=== PATIENT | male | born 1960 | race Caucasian/White ===

== ENCOUNTER 2018-08-24 18:08 | Inpatient (IN) | payer OTHER ==
[2018-08-24] MEDS ORDERED: DILTIAZEM DRIP BOLUS FROM BAG 1 MG SOLN IV ONE (18:42)
--- NOTE | 2018-08-24 18:59 | ED ---
General Adult HPI - General Chief complaint: Arrhythmia/Palpitations Stated complaint: Abnormal EKG Time Seen by Provider: 08/24/18 18:28 Source: patient, RN notes reviewed, old records reviewed Mode of arrival: ambulatory Limitations: no limitations - History of Present Illness Initial comments: 58-year-old male presented for evaluation of palpitations and jaundice. Patient initially went to see his primary care physician for evaluation of jaundice and scleral icterus. Patient was found to be in atrial fibrillation with RVR. He has no history of arrhythmia. Denies palpitations, denies lightheadedness, denies chest pain. No vomiting or diarrhea. Patient states that his yellowing of the sclerae is improved over the past several weeks. This was initially much worse than currently. Patient did see his primary care physician although this was the first visit in over 20 years. He has no documented medical history. He is not currently on any medication. He was previously diagnosed with hypertension but has not been on medication for many years. - Related Data Allergies Allergy/AdvReac Type Severity Reaction Status Date / Time No Known Allergies Allergy Verified 08/24/18 18:51 Review of Systems ROS Statement: Those systems with pertinent positive or pertinent negative responses have been documented in the HPI. ROS Other: All systems not noted in ROS Statement are negative. Past Medical History Past Medical History: No Reported History History of Any Multi-Drug Resistant Organisms: None Reported Past Surgical History: No Surgical Hx Reported Past Psychological History: Anxiety Smoking Status: Never smoker Past Alcohol Use History: None Reported Past Drug Use History: Marijuana General Exam Limitations: no limitations General appearance: alert, in no apparent distress Head exam: Present: atraumatic, normocephalic Eye exam: Present: PERRL, scleral icterus ENT exam: Present: normal exam Neck exam: Present: normal inspection. Absent: tenderness, meningismus Respiratory exam: Present: normal lung sounds bilaterally. Absent: respiratory distress, wheezes Cardiovascular Exam: Present: tachycardia, irregular rhythm GI/Abdominal exam: Present: soft. Absent: distended, tenderness, guarding Extremities exam: Present: pedal edema, other (Bilateral chronic venous stasis). Absent: tenderness Neurological exam: Present: alert, oriented X3, CN II-XII intact. Absent: motor sensory deficit Psychiatric exam: Present: normal affect, normal mood Skin exam: Present: warm, dry, intact, other Course Vital Signs 08/24/18 18:24 Temperature 98.3 F Pulse Rate 88 Respiratory 20 Rate Blood Pressure 157/88 O2 Sat by Pulse 97 Oximetry EKG Findings - EKG Comments: EKG Findings:: EKG: Atrial fibrillation versus atrial flutter with AV block, rapid ventricular response no ST segment elevation. Rate of 150 QRS duration 100, QTC 442 Medical Decision Making - Medical Decision Making 58 -year-old male presenting for evaluation of jaundice and new-onset atrial fibrillation with RVR. Patient is in A. fib with a rate between 1 5170. No chest pain. No abdominal pain. Laboratory studies indicate normal CBC, significant elevation in bilirubin at 10.7. He has a transaminitis with AST 348, ALT 159, elevated alkaline phosphatase. Ultrasound is obtained and results are pending. Troponin is negative. Chest x-ray negative for acute cardiopulmonary disease. Patient is initiated on Cardizem with improvement and rate. Blood pressure remained stable. Patient will be admitted for evaluation of hyperbilirubinemia, new-onset atrial fibrillation with RVR. Cardiology and gastric neurology placed on consult. Case discussed with Dr. Be who will admit. Ultrasound liver pending. - Lab Data Result diagrams: 08/24/18 18:53 08/24/18 18:53 Lab Results 08/24/18 08/24/18 08/24/18 Range/Units 18:53 18:53 18:53 WBC 7.2 (3.8-10.6) k/uL RBC 4.53 (4.30-5.90) m/uL Hgb 15.5 (13.0-17.5) gm/dL Hct 46.6 (39.0-53.0) % MCV 103.0 H (80.0-100.0) fL MCH 34.2 (25.0-35.0) pg MCHC 33.2 (31.0-37.0) g/dL RDW 14.9 (11.5-15.5) % Plt Count 258 (150-450) k/uL Neutrophils % 79 % Lymphocytes % 11 % Monocytes % 6 % Eosinophils % 1 % Basophils % 1 % Neutrophils # 5.7 (1.3-7.7) k/uL Lymphocytes # 0.8 L (1.0-4.8) k/uL Monocytes # 0.5 (0-1.0) k/uL Eosinophils # 0.1 (0-0.7) k/uL Basophils # 0.1 (0-0.2) k/uL Macrocytosis Slight PT 11.6 (9.0-12.0) sec INR 1.1 (<1.2) APTT 22.8 (22.0-30.0) sec Sodium 138 (137-145) mmol/L Potassium 4.8 (3.5-5.1) mmol/L Chloride 104 (98-107) mmol/L Carbon Dioxide 24 (22-30) mmol/L Anion Gap 10 mmol/L BUN 17 (9-20) mg/dL Creatinine 0.88 (0.66-1.25) mg/dL Est GFR (CKD-EPI)AfAm >90 (>60 ml/min/1.73 sqM) Est GFR (CKD-EPI)NonAf >90 (>60 ml/min/1.73 sqM) Glucose 107 H (74-99) mg/dL Calcium 9.0 (8.4-10.2) mg/dL Magnesium 1.8 (1.6-2.3) mg/dL Total Bilirubin 10.7 H (0.2-1.3) mg/dL Conjugated Bilirubin (0.0-0.3) mg/dL Unconjugated Bilirubin (0.0-1.1) mg/dL Delta Bilirubin (0.0-0.2) mg/dL AST 348 H (17-59) U/L ALT 159 H (21-72) U/L Alkaline Phosphatase 350 H (38-126) U/L Troponin I (0.000-0.034) ng/mL Total Protein 8.3 H (6.3-8.2) g/dL Albumin 3.6 (3.5-5.0) g/dL 08/24/18 08/24/18 Range/Units 18:53 19:40 WBC (3.8-10.6) k/uL RBC (4.30-5.90) m/uL Hgb (13.0-17.5) gm/dL Hct (39.0-53.0) % MCV (80.0-100.0) fL MCH (25.0-35.0) pg MCHC (31.0-37.0) g/dL RDW (11.5-15.5) % Plt Count (150-450) k/uL Neutrophils % % Lymphocytes % % Monocytes % % Eosinophils % % Basophils % % Neutrophils # (1.3-7.7) k/uL Lymphocytes # (1.0-4.8) k/uL Monocytes # (0-1.0) k/uL Eosinophils # (0-0.7) k/uL Basophils # (0-0.2) k/uL Macrocytosis PT (9.0-12.0) sec INR (<1.2) APTT (22.0-30.0) sec Sodium (137-145) mmol/L Potassium (3.5-5.1) mmol/L Chloride (98-107) mmol/L Carbon Dioxide (22-30) mmol/L Anion Gap mmol/L BUN (9-20) mg/dL Creatinine (0.66-1.25) mg/dL Est GFR (CKD-EPI)AfAm (>60 ml/min/1.73 sqM) Est GFR (CKD-EPI)NonAf (>60 ml/min/1.73 sqM) Glucose (74-99) mg/dL Calcium (8.4-10.2) mg/dL Magnesium (1.6-2.3) mg/dL Total Bilirubin 10.5 H (0.2-1.3) mg/dL Conjugated Bilirubin 3.2 H (0.0-0.3) mg/dL Unconjugated Bilirubin 2.6 H (0.0-1.1) mg/dL Delta Bilirubin 4.7 H (0.0-0.2) mg/dL AST (17-59) U/L ALT (21-72) U/L Alkaline Phosphatase (38-126) U/L Troponin I <0.012 (0.000-0.034) ng/mL Total Protein (6.3-8.2) g/dL Albumin (3.5-5.0) g/dL Critical Care Time Critical Care Time: Yes Total Critical Care Time: 35 Disposition Clinical Impression: Atrial fibrillation, Atrial fibrillation with RVR, Hyperbilirubinemia Disposition: ADMITTED IP TO THIS [facility] Condition: Serious Is patient prescribed a controlled substance at d/c from ED?: No Referrals: Gt Lopez MD [Primary Care Provider] - 1-2 days Decision to Admit Reason: Admit from EC Decision Date: 08/24/18 Decision Time: 20:16
[2018-08-24 19:08] LABS: Basophils # (A) 0.1 k/uL (0-0.2); Basophils % (A) 1 %; Eosinophils # (A) 0.1 k/uL (0-0.7); Eosinophils % (A) 1 %; HCT 46.6 % (39.0-53.0); HGB 15.5 gm/dL (13.0-17.5); Lymphocytes # (A) 0.8 k/uL (1.0-4.8); Lymphocytes % (A) 11 %; MCH 34.2 pg (25.0-35.0); MCHC 33.2 g/dL (31.0-37.0); Macrocytosis Slight; Mean Platelet Volume 8.4; Monocytes # (A) 0.5 k/uL (0-1.0); Monocytes % (A) 6 %; Neutrophils # (A) 5.7 k/uL (1.3-7.7); Neutrophils % (A) 79 %; Platelet Count 258 k/uL (150-450); RBC 4.53 m/uL (4.30-5.90); RDW 14.9 % (11.5-15.5); WBC 7.2 k/uL (3.8-10.6)
--- NOTE | 2018-08-24 19:09 | XR ---
EXAMINATION TYPE: XR chest 2V DATE OF EXAM: 08/24/2018 COMPARISON: NONE HISTORY: Dysrhythmia TECHNIQUE: Frontal and lateral views of the chest are obtained. FINDINGS: Heart and mediastinum are normal. Lungs are clear. Diaphragm is normal. There are chest le ads. Bony thorax is intact. IMPRESSION: Normal chest.
[2018-08-24 19:13] LABS: ALT 159 U/L (21-72); AST 348 U/L (17-59); Albumin 3.6 g/dL (3.5-5.0); Alkaline Phosphatase 350 U/L (38-126); Anion Gap 10 mmol/L; Blood Urea Nitrogen 17 mg/dL (9-20); Carbon Dioxide 24 mmol/L (22-30); Chloride 104 mmol/L (98-107); Glucose 107 mg/dL (74-99); Magnesium 1.8 mg/dL (1.6-2.3); Potassium 4.8 mmol/L (3.5-5.1); Sodium 138 mmol/L (137-145); Total Bilirubin 10.7 mg/dL (0.2-1.3); Total Protein 8.3 g/dL (6.3-8.2)
[2018-08-24 19:18] LABS: INR 1.1 (<1.2); Partial Thromboplastin Time 22.8 sec (22.0-30.0); Prothrombin Time 11.6 sec (9.0-12.0)
[2018-08-24] MEDS: DILTIAZEM 125 MG in SODIUM CHLORIDE 0.9% 100 ML IV SCH (19:19)
[2018-08-24 19:49] LABS: Bilirubin, Conjugated 3.2 mg/dL (0.0-0.3); Bilirubin, Delta 4.7 mg/dL (0.0-0.2); Bilirubin,Unconjugated 2.6 mg/dL (0.0-1.1); Total Bilirubin 10.5 mg/dL (0.2-1.3)
[2018-08-24] MEDS ORDERED: NALOXONE 0.4 MG/ML 1 ML VIAL IV PRN (19:55)
[2018-08-24] MEDS ORDERED: SODIUM CHLORIDE 0.9% 500 ML 500 ML IV ONE (20:00)
--- NOTE | 2018-08-24 20:28 | US ---
EXAMINATION TYPE: US gallbladder DATE OF EXAM: 08/24/2018 COMPARISON: NONE CLINICAL HISTORY: Pain. Juandice and irregular EKG. EXAM MEASUREMENTS: Liver Length: 18.3 cm Gallbladder Wall: 0.4 cm CBD: 0.7 cm Right Kidney: 11.1 x 6.3 x 4.8 cm Pancreas: Obscured by bowel gas Liver: Heterogenous hepatomegaly. Appears to be multiple lesions seen one measuring 2.7 x 2.8 cm lef t lobe. Limited visualization due to body habitus. Gallbladder: Limited due to body habitus. Evidence for sonographic Dahl's sign: No CBD: Upper limits. Right Kidney: Appears wnl. There is no free fluid seen. IMPRESSION: No gallstones or dilated ducts. Heterogeneous liver suspicious for multiple masses and pr esence of metastatic disease.
--- NOTE | 2018-08-24 22:23 | P.HPIM ---
History of Present Illness H&P Date: 08/24/18 Chief Complaint: Referred from PCP clinic, jaundice, afib The patient is a 58-year-old morbidly obese male with no significant past medical history that was referred here from his PCPs clinic. Apparently the patient has been having increasing yellowing of the skin and eyes progressively worsening over the last 3 weeks, he subsequently presented to primary care physician's clinic under Dr. Gt Lopez and was noted to have elevated blood pressure systolic 180 over 90s and was noted to be in A. fib with RVR. The patient denied any symptoms of abdominal pain, change in appetite, weight loss, change in his bowel habits, he denies diarrhea or constipation or itchiness. The patient denies chest pain shortness of breath or but mentions intermittent lower extremity swelling. In the ER the patient complains workup right upper quadrant ultrasound was done no gallstones or dilated ducts are noted, indicate a heterogenous liver suspicious for multiple metastasis and presence of metastatic disease. EKG was consistent with A. fib with RVR with a rate of 150. The patient's labs are remarkable for elevated total bilirubin and 10.7, AST/ALT of 348/159, alkaline phosphatase 350. Past Medical History Past Medical History: No Reported History History of Any Multi-Drug Resistant Organisms: None Reported Past Surgical History: No Surgical Hx Reported Past Psychological History: Anxiety Smoking Status: Never smoker Past Alcohol Use History: None Reported Past Drug Use History: Marijuana Medications and Allergies Home Medications Medication Instructions Recorded Confirmed Type Xanax(Unknown Dose) 1 tab PO DAILY 08/24/18 08/24/18 History Allergies Allergy/AdvReac Type Severity Reaction Status Date / Time No Known Allergies Allergy Verified 08/24/18 18:51 Physical Exam Vitals: Vital Signs Temp Pulse Resp BP Pulse Ox 08/24/18 21:00 112 H 20 114/80 08/24/18 20:50 146 H 18 114/80 08/24/18 20:40 134 H 12 114/80 08/24/18 20:30 154 H 10 L 146/83 08/24/18 20:20 156 H 10 L 146/83 08/24/18 20:10 131 H 14 146/83 98 08/24/18 20:00 122 H 14 134/82 08/24/18 19:50 134 H 12 08/24/18 19:40 105 H 14 134/82 98 08/24/18 19:30 111 H 18 99 08/24/18 19:20 133 H 21 100 08/24/18 19:10 152 H 13 98 08/24/18 19:00 165 H 12 153/113 08/24/18 18:50 160 H 18 153/113 98 08/24/18 18:46 174 H 22 98 08/24/18 18:24 98.3 F 88 20 157/88 97 Intake and Output 08/24/18 08/24/18 08/24/18 06:59 14:59 22:59 Other: Weight 151.953 kg Constitutional: No acute distress, conversant, pleasant, jaundiced Eyes: mildly icteric sclerae, moist conjunctiva, no lid-lag, PERRLA ENMT: NC/AT,Oropharynx clear, no erythema, exudates Neck:Supple, FROM, no masses, or JVD, No carotid bruits; No thyromegaly Lungs: Clear to auscultation, Clear to percussion, Normal respiratory effort, no accessory muscle use Cardiovascular: irregularly irregular, No murmurs, gallops, or rubs, +1 pedal p eripheral edema Abdominal: Soft Nontender, nom distended, no guarding, no rebound or rigidity, Normoactive bowel sounds No hepatomegaly, No splenomegaly, No palpable mass No abdominal wall hernia noted Skin: Normal temperature, tone, texture, turgor, No induration No subcutaneous nodules, No rash, lesions, No ulcers Extremities:No digital cyanosis No clubbing, Pedal pulses intact and symmet rical Radial pulses intact and symmetrical Normal gait and station, No calf tenderness Psychiatric: Alert and oriented to person, place and time, Appropriate affect Intact judgement Neuro: Muscles Strength 5/5 in all 4 extremities, Sensation to light touch grossly present throughout, Cranial nerves II-XII grossly intact. No focal sensory deficits Results CBC & Chem 7: 08/24/18 18:53 08/24/18 18:53 Labs: Abnormal Lab Results - Last 24 Hours (Table) 08/24/18 08/24/18 08/24/18 Range/Units 18:53 18:53 19:40 MCV 103.0 H (80.0-100.0) fL Lymphocytes # 0.8 L (1.0-4.8) k/uL Glucose 107 H (74-99) mg/dL Total Bilirubin 10.7 H 10.5 H (0.2-1.3) mg/dL Conjugated Bilirubin 3.2 H (0.0-0.3) mg/dL Unconjugated Bilirubin 2.6 H (0.0-1.1) mg/dL Delta Bilirubin 4.7 H (0.0-0.2) mg/dL AST 348 H (17-59) U/L ALT 159 H (21-72) U/L Alkaline Phosphatase 350 H (38-126) U/L Total Protein 8.3 H (6.3-8.2) g/dL Assessment and Plan (1) Hyperbilirubinemia Current Visit: Yes Status: Acute Code(s): E80.6 - OTHER DISORDERS OF BILIRUBIN METABOLISM SNOMED Code(s): 90277529 (2) Transaminitis Current Visit: Yes Status: Acute Code(s): R74.0 - NONSPEC ELEV OF LEVELS OF TRANSAMNS & LACTIC ACID DEHYDRGNSE SNOMED Code(s): 180119963 (3) Atrial fibrillation with RVR Current Visit: Yes Status: Acute Code(s): I48.91 - UNSPECIFIED ATRIAL FIBRILLATION SNOMED Code(s): 848533607309249 (4) Jaundice Current Visit: Yes Status: Acute Code(s): R17 - UNSPECIFIED JAUNDICE SNOM ED Code(s): 05344164 (5) Elevated blood-pressure reading without diagnosis of hypertension Current Visit: Yes Status: Acute Code(s): R03.0 - ELEVATED BLOOD-PRESSURE READING, W/O DIAGNOSIS OF HTN SNOMED Code(s): 329640021 Plan: The patient is admitted anticipated greater than 2 midnight stay with hyperbilirubinemia, transaminitis and ultrasound suggestive and suspicious for metastatic disease. We'll order conjugated and unconjugated bilirubin, check hepatitis panel, and order a CT of the chest abdomen and pelvis due to concern for underlying malignancy. GI will be consult and for further recommendations. The patient is also started on diltiazem drip due to A. fib with RVR, 2-D echocardiogram ordered, pending cardiology consultation. We'll place patient on SCDs and heparin for DVT prophylaxis, follow-up consultants recommendations CODE STATUS: Full code Discussed plan of care with: Patient and his Lani Anticipated discharge : 2-3 days Time with Patient: Greater than 30
[2018-08-24] MEDS ORDERED: IOPAMIDOL-300 CONTRAST 30 ML VIAL (ORAL USE) PO PRN (22:30)
[2018-08-24] MEDS: SODIUM CHLORIDE 0.9% 1,000 ML IV SCH (22:38)
[2018-08-25 01:52] VITALS: BMI 48.0
--- NOTE | 2018-08-25 03:00 | CT ---
EXAM: CT Chest Without And With Intravenous Contrast CLINICAL HISTORY: Reason: jaundice/hyperbilirubinemia/ concern for malignancy TECHNIQUE: Axial computed tomography images of the chest without and with intravenous contrast. CTDI is 78.1 mGy and DLP is 4788.9 mGy-cm. This CT exam was performed using one or more of the following dose reduction techniques: automated exposure control, adjustment of the mA and/or kV according to patient size, and/or use of iterative reconstruction technique. COMPARISON: None available FINDINGS: Lungs: No evidence of acute parenchymal disease or consolidation. No pulmonary masses. Mild thickening/scarring along right minor fissure. Pleural space: No evidence of pleural effusion or pneumothorax. Heart: Mild cardiomegaly. No significant pericardial effusion. Bones/joints: Lower cervical and thoracic spine degenerative changes. No acute bony abnormalities identified. Vasculature: Mild aneurysmal dilatation of ascending thoracic aorta measuring 4.1 cm in maximum AP diameter. No evidence of aortic dissection. Lymph nodes: No pathologically enlarged mediastinal or hilar lymphadenopathy. IMPRESSION: Mild cardiomegaly. Mild aneurysmal dilatation of ascending thoracic aorta measuring 4.1 cm in maximum AP diameter. No evidence of pulmonary metastatic disease or lymphadenopathy. EXAM: CT Abdomen and Pelvis Without And With Intravenous Contrast CLINICAL HISTORY: Reason: jaundice/hyperbilirubinemia/ concern for malignancy TECHNIQUE: Axial computed tomography images of the abdomen and pelvis without contrast material in one or both body regions followed by contrast material and further imaging in one or both body regions. CTDI is 78.1 mGy and DLP is 4788.9 mGy-cm. This CT exam was performed using one or more of the following dose reduction techniques: automated exposure control, adjustment of the mA and/or kV according to patient size, and/or use of iterative reconstruction technique. COMPARISON: Right upper quadrant ultrasound 08/24/2018 FINDINGS: Artifacts: CT Respiratory motion artifact. ABDOMEN: Liver: Hepatic morphology suggestive of cirrhosis with multilobulated appearance. Heterogeneous hepatic density with multiple ill-defined low- density lesions throughout both lobes of liver which are of indeterminate etiology. Largest of which in the left lobe of liver measures 4.4 cm. Gallbladder and bile ducts: Cholelithiasis with small calcified gallstones within the gallbladder. No evidence of biliary dilatation. Pancreas: Pancreas is unremarkable. Spleen: Moderate splenomegaly. Adrenals: No adrenal masses. Kidneys and ureters: Bilateral symmetric renal enhancement. No evidence of renal calculi or hydronephrosis. Stomach and bowel: No evidence of bowel obstruction or pneumoperitoneum. PELVIS: Appendix: No findings to suggest acute appendicitis. Bladder: Urinary bladder is unremarkable. Reproductive: Unremarkable as visualized. ABDOMEN and PELVIS: Intraperitoneal space: No abdominal-pelvic ascites. Bones/joints: Multilevel degenerative changes throughout the lumbar spine. No acute bony abnormalities identified. Soft tissues: Mild generalized edematous changes/anasarca. Vasculature: No abdominal aortic aneurysm. Findings suggesting portal venous hypertension with dilated portal and splenic veins, varices and venous collaterals. Findings suggesting splenorenal shunt. Lymph nodes: No evidence of lymphadenopathy. IMPRESSION: Hepatic morphology suggestive of cirrhosis. Multiple ill-defined hepatic low-density lesions throughout the liver which are of indeterminate etiology and could be related to cirrhosis and hepatocellular disease, but cannot exclude possibility of hepatic malignancy or metastatic disease. Pre-and postcontrast MRI may be considered for further evaluation. Moderate splenomegaly with evidence of portal venous hypertension. Mild generalized edematous changes/anasarca. No abdominal-pelvic ascites. Cholelithiasis with small calcified gallstones. No evidence of biliary dilatation.
--- NOTE | 2018-08-25 08:52 | P.CRDCN ---
History of Present Illness Consult date: 08/25/18 Chief complaint: Change in the color of the skin History of present illness: This is a pleasant 58-year-old gentleman with a past medical history significant for hypertension was taking medication for it in the past but he stopped taking the medication long time ago because of side effects as well as overweight was referred to the hospital by his primary care physician after he noticed change in the color of the eyes and finding consistent with jaundice. For the last several weeks, the patient has been noticing a change in the color of the eyes and being yellowish. Beside that he did not have any other symptoms like abdominal pain, nausea, vomiting, chest pain, chest discomfort, shortness of breath, or edema in the lower extremities. He did not is ago that the color of the urine has been darker. No change in the weight over the last several months. Because of that the patient was referred to the emergency room in the ER the michael gregorio was found to be in atrial fibrillation with RVR and subsequently he was started on Cardizem and drip. No history of atrial fibrillation in the past. The patient did not have any symptoms of heart racing or fluttering or dizziness or lightheadedness or syncope. The liver function test came in to be severe lead abnormal with elevated bilirubin, AST, LT, and alkaline phosphatase. Beside that he underwent an ultrasound of the abdomen which revealed abnormal finding in the liver and subsequently he underwent computed tomography scan of the abdomen and pelvis which revealed finding consistent with possible liver cirrhosis with differential diagnosis of metastasis to the liver. Currently the patient is in process to be seen by the gastroenterology service. Cardiac-baldwin he is on Cardizem IV. I am going to add metoprolol to the current medical regimen. I would hold on anticoagulation at this point. The TSH was checked and came in to be within normal limits. We'll get an echocardiogram was Doppler. Past Medical History Past Medical History: No Reported History Additional Past Medical History / Comment(s): states 15 years ago had HTN, quit taking medications. hasnt seen doctor in 20 yrs. History of Any Multi-Drug Resistant Organisms: None Reported Past Surgical History: No Surgical Hx Reported Past Psychological History: Anxiety Smoking Status: Never smoker Past Alcohol Use History: None Reported Past Drug Use History: Marijuana Medications and Allergies Home Medications Medication Instructions Recorded Confirmed Type Xanax(Unknown Dose) 1 tab PO DAILY 08/24/18 08/24/18 History Allergies Allergy/AdvReac Type Severity Reaction Status Date / Time No Known Allergies Allergy Verified 08/24/18 18:51 Physical Exam Vitals: Vital Signs Temp Pulse Pulse Resp BP BP Pulse Ox 08/25/18 08:20 97.8 F 125 H 16 143/89 96 08/25/18 07:39 97 08/25/18 04:00 98 F 90 18 137/81 98 08/25/18 01:01 113 H 19 135/89 08/25/18 00:30 106 H 17 159/110 08/25/18 00:00 107 H 17 08/24/18 23:30 106 H 18 137/79 08/24/18 22:30 111 H 18 151/97 08/24/18 22:21 109 H 19 151/97 100 08/24/18 22:00 126 H 19 08/24/18 21:30 108 H 19 159/72 08/24/18 21:22 98 F 110 H 18 147/95 97 08/24/18 21:00 112 H 20 114/80 08/24/18 20:50 146 H 18 114/80 08/24/18 20:40 134 H 12 114/80 08/24/18 20:30 154 H 10 L 146/83 08/24/18 20:20 156 H 10 L 146/83 08/24/18 20:10 131 H 14 146/83 98 08/24/18 20:00 122 H 14 134/82 08/24/18 19:50 134 H 12 08/24/18 19:40 105 H 14 134/82 98 08/24/18 19:30 111 H 18 99 08/24/18 19:20 133 H 21 100 08/24/18 19:10 152 H 13 98 08/24/18 19:00 165 H 12 153/113 08/24/18 18:50 160 H 18 153/113 98 08/24/18 18:46 174 H 22 98 08/24/18 18:24 98.3 F 88 20 157/88 97 Intake and Output 08/24/18 08/25/18 08/25/18 22:59 06:59 14:59 Intake Total 27.167 Balance 27.167 Intake: Intake, IV Titration 27.167 Amount Diltiazem 125 mg In 27.167 Sodium Chloride 0.9% 100 ml @ 5 MG/HR 5 mls/hr IV .Q24H [facility] Rx#:[id number] Other: Voiding Method Toilet Toilet # Voids 1 Weight 151.953 kg 152.6 kg - Constitutional General appearance: no acute distress - Respiratory Respiratory: bilateral: CTA - Cardiovascular Rhythm: irregularly irregular Heart sounds: normal: S1, S2 Results 08/24/18 18:53 08/24/18 18:53 Cardiac Enzymes 08/24/18 08/24/18 Range/Units 18:53 18:53 AST 348 H (17-59) U/L Troponin I <0.012 (0.000-0.034) ng/mL Coagulation 08/24/18 Range/Units 18:53 PT 11.6 (9.0-12.0) sec APTT 22.8 (22.0-30.0) sec CBC 08/24/18 Range/Units 18:53 WBC 7.2 (3.8-10.6) k/uL RBC 4.53 (4.30-5.90) m/uL Hgb 15.5 (13.0-17.5) gm/dL Hct 46.6 (39.0-53.0) % Plt Count 258 (150-450) k/uL Comprehensive Metabolic Panel 08/24/18 08/24/18 Range/Units 18:53 19:40 Sodium 138 (137-145) mmol/L Potassium 4.8 (3.5-5.1) mmol/L Chloride 104 (98-107) mmol/L Carbon Dioxide 24 (22-30) mmol/L BUN 17 (9-20) mg/dL Creatinine 0.88 (0.66-1.25) mg/dL Glucose 107 H (74-99) mg/dL Calcium 9.0 (8.4-10.2) mg/dL Unconjugated Bilirubin 2.6 H (0.0-1.1) mg/dL AST 348 H (17-59) U/L ALT 159 H (21-72) U/L Alkaline Phosphatase 350 H (38-126) U/L Total Protein 8.3 H (6.3-8.2) g/dL Albumin 3.6 (3.5-5.0) g/dL Current Medications Generic Name Dose Route Start Last Admin Trade Name Freq PRN Reason Stop Dose Admin Diltiazem HCl 125 mg/ Sodium 125 mls @ 5 mls/hr 08/24/18 19:00 08/25/18 00:23 Chloride IV 15 mg/hr .Q24H [facility] 15 mls/hr Infusion 5 MG/HR Sodium Chloride 1,000 mls @ 75 mls/hr 08/24/18 20:00 08/24/18 22:38 Saline 0.9% IV 75 mls/hr .[id number] [facility] Administration Metoprolol Tartrate 12.5 mg 08/25/18 09:00 Lopressor PO BID [facility] Naloxone HCl 0.2 mg 08/24/18 19:55 Narcan IV Q2M PRN Opioid Reversal Intake and Output 08/24/18 08/25/18 08/25/18 22:59 06:59 14:59 Intake Total 27.167 Balance 27.167 Intake: Intake, IV Titration 27.167 Amount Diltiazem 125 mg In 27.167 Sodium Chloride 0.9% 100 ml @ 5 MG/HR 5 mls/hr IV .Q24H [facility] Rx#:[id number] Other: Voiding Method Toilet Toilet # Voids 1 Weight 151.953 kg 152.6 kg 08/24/18 18:53 08/24/18 18:53 Assessment and Plan Assessment: Assessment #1 atrial fibrillation with RVR. This is a new diagnosis the patient #2 abnormal liver function test and evidence with jaundice. The etiology is unknown #3 liver cirrhosis versus metastasis to the liver #4 hypertension #5 obesity Plan #1 continue the Cardizem drip and try to titrate down the dose #2 add metoprolol to the current medical regimen #3 obtain an echocardiogram was Doppler #4 the TSH was checked and came in to be unremarkable #5 follow-up with the patient Thank you for allowing us participate in the care of the patient
--- NOTE | 2018-08-25 10:49 | ECHOF ---
Referral Reason:afib MEASUREMENTS -------- HEIGHT: 180.3 cm WEIGHT: 152.4 kg BP: RVIDd: 2.7 cm (< 3.3) IVSd: 1.4 cm (0.6 - 1.1) LVIDd: 4.1 cm (3.9 - 5.3) LVPWd: 1.6 cm (0.6 - 1.1) IVSs: 2.2 cm LVIDs: 2.3 cm LVPWs: 2.1 cm LAESV Index (A-L): 29.74 ml/m Ao Diam: 2.9 cm (2.0 - 3.7) AV Cusp: 2.1 cm (1.5 - 2.6) LA Diam: 3.3 cm (2.7 - 3.8) MV EXCURSION: 16.312 mm (> 18.000) MV EF SLOPE: 191 mm/s (70 - 150) EPSS: 0.6 cm RAP: 15.00 mmHg RVSP: 26.73 mmHg FINDINGS -------- Atrial fibrillation. This was a technically good study. The left ventricular size is normal. There is moderate concentric left ventricular hypertrophy. O verall left ventricular systolic function is normal with, an EF between 55 - 60 %. The right ventricle is normal in size. LA is midly dilated 29-33ml/m2. The right atrial size is normal. Interatrial and interventricular septum intact. The aortic valve is trileaflet and appears structurally normal. Mild mitral annular calcification present. Mild mitral regurgitation is present. Mild tricuspid regurgitation present. The right ventricular systolic pressure, as measured by Doppl er, is 26.73mmHg. There is no pulmonic regurgitation present. The aortic root size is normal. The inferior vena cava is mildly dilated. There is no pericardial effusion. CONCLUSIONS -------- 1. Atrial fibrillation. 2. This was a technically good study. 3. The left ventricular size is normal. 4. There is moderate concentric left ventricular hypertrophy. 5. Overall left ventricular systolic function is normal with, an EF between 55 - 60 %. 6. The right ventricle is normal in size. 7. LA is midly dilated 29-33ml/m2. 8. The right atrial size is normal. 9. Interatrial and interventricular septum intact. 10. The aortic valve is trileaflet and appears structurally normal. 11. Mild mitral annular calcification present. 12. Mild mitral regurgitation is present. 13. Mild tricuspid regurgitation present. 14. The right ventricular systolic pressure, as measured by Doppler, is 26.73mmHg. 15. There is no pulmonic regurgitation present. 16. The aortic root size is normal. 17. The inferior vena cava is mildly dilated. 18. There is no pericardial effusion. PRODUCT DEVELOPMENT TECHNICIAN: Tawana Osullivan RDCS
[2018-08-25 11:20] LABS: Hepatitis A Antibody IgM Non-Reactive (Non-Reactive); Hepatitis B Core IgM Non-Reactive (Non-Reactive)
--- NOTE | 2018-08-25 12:10 | P.CONS ---
History of Present Illness - Reason for Consult Consult date: 08/25/18 Jaundice and elevated liver enzymes Requesting physician: Giovany Be - Chief Complaint Jaundice - History of Present Illness 58-year-old male admitted with new onset of painless jaundice x 2 weeks darker colored urine and heart palpitations found to be in A. fib with RVR. White count 7.2. Hemoglobin 15.5. MCV 103. INR 1.1. Total bilirubin 10.7. Conjugated 3.2. Unconjugated 2.6. AST 340. ALT 159. AP 350. Albumin 3.6. Hepatitis panel pending. No history of known liver disease or hepatitis. No history of ETOH or abuse. Denies fever, chills, or acholic stools. No new medications. No recent travels. No history of EGD or colonoscopy. Ultrasound no gallstones or dilated ducts. Heterogeneous liver suspicious for multiple masses and presence of metastatic disease. CT chest abdomen and pelvis findings suggesting portal venous hypertension dilated portal and splenic veins varices and venous collaterals. Findings suggested of splenorenal shunt. Hepatic morphology suggestive of cirrhosis multiple ill-defined hepatic low-density lesions throughout the liver which are indeterminate could related cirrhosis and hepatocellular disease but Malignancy or metastatic disease could not be excluded. Moderate-sized organomegaly with evidence of portal venous hypertension. Generalized anasarca no ascites. Cholelithiasis small calcified gallstones no evidence of biliary dilatation. Review of Systems RConstitutional: Denies fever, chills, sweats, weight gain, or loss. HEENT: Negative for migraines, blurred vision or loss, earaches, drainage, tinnitus, oral mucosal lesions, dysphagia, or odynophagia. Cardiac: Negative for chest pain, arrhythmias, or palpitation. Respiratory: Negative for shortness of breath, hemoptysis, cough, or sputum production. Gastrointestinal: See HPI for pertinent findings. Genitourinary: Negative for hematuria, urgency, frequency, polyuria, dysuria, or penile discharge. Musculoskeletal: Negative for muscle aches, swelling, arthritis, and arthralgias. Neurologic: Negative for stroke or TIA. Endocrine: Negative for thyroid problems. Skin: Negative for rash or itching. Psychiatric: Negative history for depression and anxietyale Past Medical History Past Medical History: No Reported History Additional Past Medical History / Comment(s): states 15 years ago had HTN, quit taking medications. hasnt seen doctor in 20 yrs. History of Any Multi-Drug Resistant Organisms: None Reported Past Surgical History: No Surgical Hx Reported Past Psychological History: Anxiety Smoking Status: Never smoker Past Alcohol Use History: None Reported Past Drug Use History: Marijuana Medications and Allergies Home Medications Medication Instructions Recorded Confirmed Type Xanax(Unknown Dose) 1 tab PO DAILY 08/24/18 08/24/18 History Allergies Allergy/AdvReac Type Severity Reaction Status Date / Time No Known Allergies Allergy Verified 08/24/18 18:51 Physical Exam Vitals: Vital Signs Temp Pulse Pulse Resp BP BP Pulse Ox 08/25/18 08:20 97.8 F 125 H 16 143/89 96 08/25/18 07:39 97 08/25/18 04:00 98 F 90 18 137/81 98 08/25/18 01:01 113 H 19 135/89 08/25/18 00:30 106 H 17 159/110 08/25/18 00:00 107 H 17 08/24/18 23:30 106 H 18 137/79 08/24/18 22:30 111 H 18 151/97 08/24/18 22:21 109 H 19 151/97 100 08/24/18 22:00 126 H 19 08/24/18 21:30 108 H 19 159/72 08/24/18 21:22 98 F 110 H 18 147/95 97 08/24/18 21:00 112 H 20 114/80 08/24/18 20:50 146 H 18 114/80 08/24/18 20:40 134 H 12 114/80 08/24/18 20:30 154 H 10 L 146/83 08/24/18 20:20 156 H 10 L 146/83 08/24/18 20:10 131 H 14 146/83 98 08/24/18 20:00 122 H 14 134/82 08/24/18 19:50 134 H 12 08/24/18 19:40 105 H 14 134/82 98 08/24/18 19:30 111 H 18 99 08/24/18 19:20 133 H 21 100 08/24/18 19:10 152 H 13 98 08/24/18 19:00 165 H 12 153/113 08/24/18 18:50 160 H 18 153/113 98 08/24/18 18:46 174 H 22 98 08/24/18 18:24 98.3 F 88 20 157/88 97 Intake and Output 08/24/18 08/25/18 08/25/18 22:59 06:59 14:59 Intake Total 27.167 Balance 27.167 Intake: Intake, IV Titration 27.167 Amount Diltiazem 125 mg In 27.167 Sodium Chloride 0.9% 100 ml @ 5 MG/HR 5 mls/hr IV .Q24H [facility] Rx#:[id number] Other: Voiding Method Toilet Toilet # Voids 1 Weight 151.953 kg 152.6 kg General appearance: The patient is alert, oriented, in no acute distress. Jaundice. HET: Head is normocephalic and atraumatic. Pupils are equal and reactive. Oropharynx is clear without lesions. Sclera icterus. Neck: Supple without lymphadenopathy. Trachea midline. Heart: S1 S2. Regular rate and rhythm. Lungs: No crackles or wheezes are heard. Abdomen: Soft, nontender, nondistended with bowel sounds. No peritoneal signs. No palpable organomegaly or masses. Extremities: Normal skin color and turgor. No cyanosis, rash, ulceration, clubbing, or edema. Radial and pedal pulses are 2/4 bilaterally. Neurological: No focal deficits. Strength and sensation are grossly intact. Results CBC & Chem 7: 08/24/18 18:53 08/24/18 18:53 Labs: Abnormal Lab Results - Last 24 Hours (Table) 08/24/18 08/24/18 08/24/18 Range/Units 18:53 18:53 19:40 MCV 103.0 H (80.0-100.0) fL Lymphocytes # 0.8 L (1.0-4.8) k/uL Glucose 107 H (74-99) mg/dL Total Bilirubin 10.7 H 10.5 H (0.2-1.3) mg/dL Conjugated Bilirubin 3.2 H (0.0-0.3) mg/dL Unconjugated Bilirubin 2.6 H (0.0-1.1) mg/dL Delta Bilirubin 4.7 H (0.0-0.2) mg/dL AST 348 H (17-59) U/L ALT 159 H (21-72) U/L Alkaline Phosphatase 350 H (38-126) U/L Total Protein 8.3 H (6.3-8.2) g/dL CT scan - abdomen: report reviewed (Dr. Dawn) US - abdomen: report reviewed (Dr. Dawn) Assessment and Plan (1) Jaundice Narrative/Plan: 58 y/o male admitted with painless jaundice with positive hepatitis C antibody. CT and US imaging abdomen reported hepatic masses and cirrhotic morphology underlying hepatocellular carcinoma possible metastatic disease possible chronic liver diseases cannot be excluded. Current Visit: Yes Status: Acute Code(s): R17 - UNSPECIFIED JAUNDICE SNOMED Code(s): 12474030 (2) Atrial fibrillation with RVR Current Visit: Yes Status: Acute Code(s): I48.91 - UNSPECIFIED ATRIAL FIBRILLATION SNOMED Code(s): 773309912349356 (3) Hepatitis C antibody positive in blood Current Visit: Yes Status: Acute Code(s): R76.8 - OTHER SPECIFIED ABNORMAL IMMUNOLOGICAL FINDINGS IN SERUM SNOMED Code(s): 096074982 Plan: 1. Serologic workup for chronic liver disease requested. AFP, CEA, CA19-9. HCV RNA quantitative and genotype. Liver biopsy today with oncology consult. EGD/colonoscopy screening contingent on clinical course will await input from oncology. 2. MRI/MRCP recommended however patient is extremely claustrophobic and requests outpatient open MRI. 3. Light diet as tolerated. ERCP not planned at this time. Thank you for this kind referral and the opportunity to participate in the care of your patient. This consultation was discussed with Dr. Dawn. The impression and plan of care have been directed as dictated.
[2018-08-25] MEDS: SODIUM CHLORIDE 0.9% 1,000 ML IV SCH ×2 (12:12→20:29)
[2018-08-25] MEDS: METOPROLOL TARTRATE 12.5 MG TAB PO SCH ×2 (12:55→19:55)
[2018-08-25] MEDS ORDERED: PEG 3350-NA SULF,BICARB,CL/KCL 4,000 ML BOTTLE PO ONE (15:24)
[2018-08-25] MEDS ORDERED: BISACODYL 5 MG TABLET.DR PO STA (15:26)
--- NOTE | 2018-08-25 15:52 | P.PN ---
Subjective Progress Note Date: 08/25/18 Patient was seen and examined the bedside. He was in good spirits and denied any active complaints. He reports that he feels well and is only here because of his jaundice. Further denied any abdominal pain, nausea, vomiting, chest pain, shortness of breath, fever, or chills. Objective - Vital Signs Vital signs: Vital Signs Temp 98.2 F 08/25/18 12:00 Pulse 125 H 08/25/18 12:00 Resp 18 08/25/18 12:00 BP 140/81 08/25/18 12:00 Pulse Ox 96 08/25/18 12:00 Intake & Output 08/24/18 08/25/18 08/25/18 18:59 06:59 18:59 Intake Total 27.167 Balance 27.167 Weight 151.953 kg 152.6 kg Intake: Intake, IV Titration 27.167 Amount Diltiazem 125 mg In 27.167 Sodium Chloride 0.9% 100 ml @ 5 MG/HR 5 mls/hr IV .Q24H [facility] Rx#:[id number] Other: Voiding Method Toilet Toilet # Voids 1 2 - Exam General: Non-toxic, in no acute distress, jaundiced, appears stated age, morbidly obese HEENT: NC/AT, scleral icterus, moist conjunctiva, no lid-lag, PERRLA Cardiovascular: S1/S2 wnl, no murmurs, rubs, or gallops Lungs: Clear to auscultation, normal respiratory effort, no accessory muscle use Abdominal: Soft, non-tender, non-distended, no guarding, rebound, or rigidity Skin: Warm, dry Extremities: No edema or contractures Psychiatric: Alert and oriented to person, place and time, appropriate affect Neuro: CN II-XII grossly intact, Strength 5/5 in all 4 extremities, Speech intact, Sensation to light touch grossly intact throughout - Labs CBC & Chem 7: 08/24/18 18:53 08/24/18 18:53 Labs: Abnormal Lab Results - Last 24 Hours (Table) 08/24/18 08/24/18 08/24/18 Range/Units 18:53 18:53 19:40 MCV 103.0 H (80.0-100.0) fL Lymphocytes # 0.8 L (1.0-4.8) k/uL Glucose 107 H (74-99) mg/dL Total Bilirubin 10.7 H 10.5 H (0.2-1.3) mg/dL Conjugated Bilirubin 3.2 H (0.0-0.3) mg/dL Unconjugated Bilirubin 2.6 H (0.0-1.1) mg/dL Delta Bilirubin 4.7 H (0.0-0.2) mg/dL AST 348 H (17-59) U/L ALT 159 H (21-72) U/L Alkaline Phosphatase 350 H (38-126) U/L Total Protein 8.3 H (6.3-8.2) g/dL Hep C IgG Ab (Non-Reactive) 08/24/18 Range/Units 22:53 MCV (80.0-100.0) fL Lymphocytes # (1.0-4.8) k/uL Glucose (74-99) mg/dL Total Bilirubin (0.2-1.3) mg/dL Conjugated Bilirubin (0.0-0.3) mg/dL Unconjugated Bilirubin (0.0-1.1) mg/dL Delta Bilirubin (0.0-0.2) mg/dL AST (17-59) U/L ALT (21-72) U/L Alkaline Phosphatase (38-126) U/L Total Protein (6.3-8.2) g/dL Hep C IgG Ab Reactive H (Non-Reactive) Assessment and Plan Plan: Jaundice, abnormal CT findings w/ liver lesions -GI recommendations appreciated -Patient scheduled for liver biopsy -Oncology consulted -MRI MRCP was recommended, however the patient is currently refusing due to claustrophobia -Chronic liver disease workup pending Hepatitis C serology positive -Viral titer workup pending Atrial fibrillation with RVR -Cardiology recommendations appreciated -Continue with Cardizem infusion, with plans of down titrating -Started on metoprolol -Holding off on Anticoagulation since planned for biopsy DVT prophylaxis -IPCDs Discussed with: Patient, Anticipated discharge date: 08/27/[address]: Home A total of 35 minutes was spent on the care of this complex patient more than 50% of the time was spent in counseling and care coordination.
[2018-08-25] MEDS: DILTIAZEM 125 MG in SODIUM CHLORIDE 0.9% 100 ML IV SCH (19:55)
[2018-08-26] MEDS ORDERED: fentaNYL (PF) 50 MCG/ML 2 ML AMP ONE (08:57)
[2018-08-26] MEDS ORDERED: PROPOFOL 10 MG/ML 20 ML VIAL IV ONE (08:57)
[2018-08-26] MEDS ORDERED: MIDAZOLAM 2 MG/2 ML VIAL ONE (08:57)
[2018-08-26] MEDS ORDERED: IV FLUID CONTINUATION 300 ML IV ONE (09:00)
--- NOTE | 2018-08-26 09:22 | P.PCN ---
Date of Procedure: 08/26/18 Procedure(s) Performed: Brief history: Patient is a pleasant 58-year-old white male, scheduled for an elective upper endoscopy as well as colonoscopy as a part of evaluation of abnormal CAT scan of the abdomen and pelvis that showed multiple lesions in the liver and nodular appearing liver suspicious for metastasis. He was admitted hospital because of jaundice of 2 weeks duration. Labs revealed a bili of 10.5 g/dL. He denies any history of chronic liver disease. However was noted to have hepatitis C antibody was positive and viral RNA is still pending. Procedure performed: Esophagogastroduodenoscopy Colonoscopy with snare polypectomy Preoperative diagnosis: Abnormal CT of the abdomen that showed cirrhotic-appearing liver with multiple lesions and nodularity suspicious for liver metastasis Anesthesia: MAC Procedure: After informed consent was obtained from the patient was brought into the endoscopy unit and IV sedation was administered by anesthesia under continuous monitoring. Initially upper endoscopy was done. The Olympus GF 160 video endoscope was inserted inserted into the mouth and esophagus intubated without any difficulty and was gradually advanced into the stomach and duodenum and carefully examined. The bulb and second part of the duodenum appeared normal. The scope was then withdrawn into the stomach adequately insufflated with air and upon careful examination the antrum and mild gastritis and body, cardia and fundus appeared normal. The scope was then withdrawn into the esophagus. The GE junction was located at 40 cm to the incisors. It appeared regular with no erythema erosions or ulcerations. Small sliding Hiatal hernia noted. Rest of the esophagus appeared normal. Patient tolerated the procedure well. At this time the patient continued to remain sedation. Initial digital rectal examination was normal. Olympus CF 160 video colonoscope was then inserted into the rectum and gradually advanced to the cecum without any difficulty. Careful examination was performed as the scope was gradually being withdrawn. The prep was excellent. The cecum, ascending colon, transverse colon, appeared normal. In the descending colon there was a 5 mm polyp that was removed by snare polypectomy. Rest of the descending colon, sigmoid colon and rectum appeared normal. Retroflexion was performed in the rectum and small internal hemorrhoids were noted. Patient tolerated the procedure well. Impression: 1. Upper endoscopy revealed mild gastritis and small hiatal hernia. 2. Colonoscopy revealed 5 mm descending colon polyp status post polypectomy. Recommendations: Findings of this examination were discussed with the patient as well as his fam kiley. He was advised to follow with the biopsy results. At this time the he will be started on a regular diet. He'll be scheduled for liver biopsy on Tuesday.
[2018-08-26] MEDS: METOPROLOL TARTRATE 12.5 MG TAB PO SCH ×2 (09:51→21:11)
[2018-08-26 11:19] LABS: Alpha Fetoprotein, Tumor Mkr 2.9 ng/mL (0.0-7.9)
[2018-08-26 11:39] LABS: Ceruloplasmin 32.5 mg/dL (20.0-60.0)
[2018-08-26 11:43] LABS: Iron Saturation 51.87 (15.00-50.00)
[2018-08-26 11:47] LABS: Cancer Antigen 19-9 80.7 U/mL (0.0-34.9)
[2018-08-26 11:51] LABS: HCT 43.5 % (39.0-53.0); HGB 14.5 gm/dL (13.0-17.5); MCH 35.1 pg (25.0-35.0); MCHC 33.3 g/dL (31.0-37.0); MCV 105.5 fL (80.0-100.0); Macrocytosis Moderate; Mean Platelet Volume 7.5; Platelet Count 201 k/uL (150-450); RBC 4.12 m/uL (4.30-5.90); RDW 14.1 % (11.5-15.5)
[2018-08-26 12:07] LABS: Protein, Total 5.8 g/dL (6.2-8.2)
[2018-08-26 12:09] LABS: ALT 141 U/L (21-72); AST 321 U/L (17-59); Albumin 2.9 g/dL (3.5-5.0); Alkaline Phosphatase 287 U/L (38-126); Anion Gap 8 mmol/L; Blood Urea Nitrogen 15 mg/dL (9-20); Calcium 8.6 mg/dL (8.4-10.2); Carbon Dioxide 22 mmol/L (22-30); Chloride 109 mmol/L (98-107); Glucose 129 mg/dL (74-99); Potassium 4.2 mmol/L (3.5-5.1); Sodium 139 mmol/L (137-145); Total Bilirubin 9.6 mg/dL (0.2-1.3); Total Protein 6.8 g/dL (6.3-8.2)
--- NOTE | 2018-08-26 12:24 | P.PN ---
Subjective Progress Note Date: 08/26/18 Principal diagnosis: Paroxysmal atrial fibrillation This is a pleasant 58-year-old gentleman with a past medical history significant for hypertension was taking medication for it in the past but he stopped taking the medication long time ago because of side effects as well as overweight was referred to the hospital by his primary care physician after he noticed change in the color of the eyes and finding consistent with jaundice. For the last several weeks, the patient has been noticing a change in the color of the eyes and being yellowish. Beside that he did not have any other symptoms like abdominal pain, nausea, vomiting, chest pain, chest discomfort, shortness of br eath, or edema in the lower extremities. He did not is ago that the color of the urine has been darker. No change in the weight over the last several months. Because of that the patient was referred to the emergency room in the ER the patient was found to be in atrial fibrillation with RVR and subsequently he was started on Cardizem and drip. No history of atrial fibrillation in the past. The patient did not have any symptoms of heart racing or fluttering or dizziness or lightheadedness or syncope. The liver function test came in to be severe lead abnormal with elevated bilirubin, AST, LT, and alkaline phosphatase. Beside that he underwent an ultrasound of the abdomen which revealed abnormal finding in the liver and subsequently he underwent computed tomography scan of the abdomen and pelvis which revealed finding consistent with possible liver cirrhosis with differential diagnosis of metastasis to the liver. On follow-up with the patient today, he continues to be asymptomatic from the cardiac vascular standpoint of view. He underwent an echocardiogram which revealed normal LV function. He underwent also an upper and lower endoscopy which came in to be unremarkable and the patient is in process to undergo liver biopsy probably as an outpatient. Yesterday he was started on metoprolol we'll continue that. He continues to be in atrial fibrillation was controlled heart rate. Objective - Vital Signs Vital signs: Vital Signs Temp 98.2 F 08/26/18 03:55 Pulse 82 08/26/18 03:55 Resp 18 08/26/18 03:55 BP 136/90 08/26/18 03:55 Pulse Ox 95 08/26/18 03:55 Intake & Output 08/25/18 08/26/18 08/26/18 18:59 06:59 18:59 Intake Total 360 980 Balance 360 980 Weight 105.2 kg Intake: IV 200 Intake, IV Titration 300 Amount Sodium Chloride 0.9% 1, 300 000 ml @ 75 mls/hr IV . [id number] [facility] Rx#:[id number] Oral 360 480 Other: Voiding Method Toilet Toilet # Voids 2 2 1 # Bowel Movements 5 - Constitutional General appearance: Present: no acute distress - Respiratory Respiratory: bilateral: CTA - Cardiovascular Rhythm: irregularly irregular Heart sounds: normal: S1, S2 Abnormal Heart Sounds: Present: systolic murmur - Labs CBC & Chem 7: 08/26/18 11:36 08/26/18 11:36 Labs: Abnormal Lab Results - Last 24 Hours (Table) 08/26/18 08/26/18 08/26/18 Range/Units 05:31 05:31 11:36 RBC 4.12 L (4.30-5.90) m/uL MCV 105.5 H (80.0-100.0) fL MCH 35.1 H (25.0-35.0) pg Chloride (98-107) mmol/L Glucose (74-99) mg/dL TIBC 187 L (228-460) ug/dL Iron Saturation 51.87 H (15.00-50.00) Ferritin 1100.4 H (22.0-322.0) ng/mL Total Bilirubin (0.2-1.3) mg/dL AST (17-59) U/L ALT (21-72) U/L Alkaline Phosphatase (38-126) U/L Total Protein (PEP) 5.8 L (6.2-8.2) g/dL Albumin (3.5-5.0) g/dL Carcinoembryonic Ag 5.2 H (0.0-4.9) ng/mL CA 19-9 Antigen 80.7 H (0.0-34.9) U/mL 08/26/18 Range/Units 11:36 RBC (4.30-5.90) m/uL MCV (80.0-100.0) fL MCH (25.0-35.0) pg Chloride 109 H (98-107) mmol/L Glucose 129 H (74-99) mg/dL TIBC (228-460) ug/dL Iron Saturation (15.00-50.00) Ferritin (22.0-322.0) ng/mL Total Bilirubin 9.6 H (0.2-1.3) mg/dL AST 321 H (17-59) U/L ALT 141 H (21-72) U/L Alkaline Phosphatase 287 H (38-126) U/L Total Protein (PEP) (6.2-8.2) g/dL Albumin 2.9 L (3.5-5.0) g/dL Carcinoembryonic Ag (0.0-4.9) ng/mL CA 19-9 Antigen (0.0-34.9) U/mL Assessment and Plan Assessment: Assessment #1 atrial fibrillation with RVR. This is a new diagnosis the patient #2 abnormal liver function test and evidence with jaundice. The etiology is unknown #3 liver cirrhosis versus metastasis to the liver #4 hypertension #5 obesity Plan #1 continue the current dose of metoprolol #2 hold on any anticoagulation at this point #3 from the cardiac standpoint, the patient can be discharged home Thank you for allowing us participate in the care of the patient
[2018-08-26] MEDS: SODIUM CHLORIDE 0.9% 1,000 ML IV SCH ×2 (13:12→22:49)
[2018-08-26] MEDS: DILTIAZEM 125 MG in SODIUM CHLORIDE 0.9% 100 ML IV SCH (13:13)
--- NOTE | 2018-08-26 13:14 | P.PN ---
Subjective Progress Note Date: 08/26/18 Patient was seen and examined the bedside on 08/26/18. The patient was in good spirits and denied any complaints. He denied abdominal pain, fever, chills, nausea, vomiting, chest pain, or SOB. Objective - Vital Signs Vital signs: Vital Signs Temp 98.2 F 08/26/18 03:55 Pulse 82 08/26/18 03:55 Resp 18 08/26/18 03:55 BP 136/90 08/26/18 03:55 Pulse Ox 95 08/26/18 03:55 Intake & Output 08/25/18 08/26/18 08/26/18 18:59 06:59 18:59 Intake Total 360 1220 Balance 360 1220 Weight 105.2 kg Intake: IV 200 Intake, IV Titration 300 Amount Sodium Chloride 0.9% 1, 300 000 ml @ 75 mls/hr IV . [id number] [facility] Rx#:[id number] Oral 360 720 Other: Voiding Method Toilet Toilet # Voids 2 2 1 # Bowel Movements 5 - Exam General: Non-toxic, in no acute distress, jaundiced, appears stated age, morbidly obese HEENT: NC/AT, scleral icterus, moist conjunctiva, no lid-lag, PERRLA Cardiovascular: S1/S2 wnl, no murmurs, rubs, or gallops Lungs: Clear to auscultation, normal respiratory effort, no accessory muscle use Abdominal: Soft, non-tender, non-distended, no guarding, rebound, or rigidity Skin: Warm, dry Extremities: No edema or contractures Psychiatric: Alert and oriented to person, place and time, appropriate affect Neuro: CN II-XII grossly intact, Strength 5/5 in all 4 extremities, Speech intact, Sensation to light touch grossly intact throughout - Labs CBC & Chem 7: 08/26/18 11:36 08/26/18 11:36 Labs: Abnormal Lab Results - Last 24 Hours (Table) 08/26/18 08/26/18 08/26/18 Range/Units 05:31 05:31 11:36 RBC 4.12 L (4.30-5.90) m/uL MCV 105.5 H (80.0-100.0) fL MCH 35.1 H (25.0-35.0) pg Chloride (98-107) mmol/L Glucose (74-99) mg/dL TIBC 187 L (228-460) ug/dL Iron Saturation 51.87 H (15.00-50.00) Ferritin 1100.4 H (22.0-322.0) ng/mL Total Bilirubin (0.2-1.3) mg/dL AST (17-59) U/L ALT (21-72) U/L Alkaline Phosphatase (38-126) U/L Total Protein (PEP) 5.8 L (6.2-8.2) g/dL Albumin (3.5-5.0) g/dL Carcinoembryonic Ag 5.2 H (0.0-4.9) ng/mL CA 19-9 Antigen 80.7 H (0.0-34.9) U/mL 08/26/18 Range/Units 11:36 RBC (4.30-5.90) m/uL MCV (80.0-100.0) fL MCH (25.0-35.0) pg Chloride 109 H (98-107) mmol/L Glucose 129 H (74-99) mg/dL TIBC (228-460) ug/dL Iron Saturation (15.00-50.00) Ferritin (22.0-322.0) ng/mL Total Bilirubin 9.6 H (0.2-1.3) mg/dL AST 321 H (17-59) U/L ALT 141 H (21-72) U/L Alkaline Phosphatase 287 H (38-126) U/L Total Protein (PEP) (6.2-8.2) g/dL Albumin 2.9 L (3.5-5.0) g/dL Carcinoembryonic Ag (0.0-4.9) ng/mL CA 19-9 Antigen (0.0-34.9) U/mL Assessment and Plan Plan: Jaundice, abnormal CT findings w/ liver lesions -GI recommendations appreciated -Patient underwent EGD/Colonoscopy yesterday which were revealed mild gastritis and small hiatal hernia along w/ a 5 mm descending colon polyp s/p polypectomy -Patient scheduled for liver biopsy on Tuesday -Oncology consulted -MRI MRCP was recommended, however the patient is currently refusing due to claustrophobia. Patient may undergo procedure as outpatient -Chronic liver disease workup pending Hepatitis C serology positive -Viral titer workup pending Atrial fibrillation, RVR resolved -Cardiology recommendations appreciated -C/w Lopressor 12.5 mg bid -Holding off on Anticoagulation for now DVT prophylaxis -IPCDs Discussed with: Patient, Anticipated discharge date: 08/28/[address]: Home A total of 35 minutes was spent on the care of this complex patient more than 50% of the time was spent in counseling and care coordination.
[2018-08-27] MEDS: METOPROLOL TARTRATE 12.5 MG TAB PO SCH ×2 (09:19→20:45)
--- NOTE | 2018-08-27 10:53 | PN ---
PROGRESS NOTE REQUESTING PHYSICIAN: Dr. Lopez. The patient is a 58-year-old pleasant white male admitted to the hospital with jaundice. He had a CT of the abdomen done that showed cirrhosis of the liver with nodularity and questionable lesions in the liver suspicious for metastasis. He underwent an EGD and colonoscopy yesterday that was unremarkable other than a small colon polyp. He is scheduled for a liver biopsy tomorrow. In the meantime, he denies any complaints. No nausea, no vomiting, no abdominal pain. PHYSICAL EXAMINATION: Appears comfortable. No apparent distress. VITAL SIGNS: Stable. Blood pressure is 132/82, pulse rate 82 per minute and afebrile. HEENT examination unremarkable. Conjunctivae pink. Sclerae deeply icteric. Oral cavity no lesions. No JVD or lymph node enlargement. Chest was clear to auscultation. HEART: Regular rate and rhythm. Abdomen is soft. Bowel sounds are positive. No organomegaly. EXTREMITIES: No pedal edema. SKIN: No rashes. NEURO: He is alert and oriented x3. No focal deficits. LABS: From yesterday; he had T-bili 9.6, AST 321, ALT is 141, alkaline phosphatase 284. Alpha- fetoprotein was 2.9. CEA is 5.2. CA-99 is 80.7. SUKI is negative. Hepatitis C antibodies positive, but HCV RNA still pending. IMPRESSION: 1. Jaundice with elevated serum transaminases and the picture is consistent with severe intrahepatic cholestasis. CT of the abdomen did not show any evidence of biliary ductal dilation. However, the liver was cirrhotic in appearance with multiple indeterminate lesions throughout the liver suspicious for liver metastasis. EGD and colonoscopy done yesterday was unremarkable. Bilirubin stable at 9.5 g/dL. 2. Positive hepatitis C antibody. HCV RNA is still pending. RECOMMENDATION: Scheduled for an ultrasound-guided liver biopsy tomorrow. Discussed with the patient about the procedure itself. Hopefully, the patient can be discharged home following the procedure with outpatient follow up with Dr. Dawn in 3-4 days. Thank you for this consultation. MMODL / IJN: [id number] /
--- NOTE | 2018-08-27 11:22 | P.PN ---
Subjective Progress Note Date: 08/27/18 Principal diagnosis: Paroxysmal atrial fibrillation This is a pleasant 58-year-old gentleman with a past medical history significant for hypertension was taking medication for it in the past but he stopped taking the medication long time ago because of side effects as well as overweight was referred to the hospital by his primary care physician after he noticed change in the color of the eyes and finding consistent with jaundice. For the last several weeks, the patient has been noticing a change in the color of the eyes and being yellowish. Beside that he did not have any other symptoms like abdominal pain, nausea, vomiting, chest pain, chest discomfort, shortness of br eath, or edema in the lower extremities. He did not is ago that the color of the urine has been darker. No change in the weight over the last several months. Because of that the patient was referred to the emergency room in the ER the patient was found to be in atrial fibrillation with RVR and subsequently he was started on Cardizem and drip. No history of atrial fibrillation in the past. The patient did not have any symptoms of heart racing or fluttering or dizziness or lightheadedness or syncope. The liver function test came in to be severe lead abnormal with elevated bilirubin, AST, LT, and alkaline phosphatase. Beside that he underwent an ultrasound of the abdomen which revealed abnormal finding in the liver and subsequently he underwent computed tomography scan of the abdomen and pelvis which revealed finding consistent with possible liver cirrhosis with differential diagnosis of metastasis to the liver. I'll follow-up with the patient today, August [id number], the patient continues to be in atrial fibrillation was controlled heart rate. The echocardiogram showed normal LV function. He underwent an upper and lower endoscopy and both came in to be unremarkable and he is going to undergo a liver biopsy tomorrow. I will continue the current dose of metoprolol. Consider oral anticoagulation down the line. Objective - Vital Signs Vital signs: Vital Signs Temp 98.0 F 08/27/18 08:00 Pulse 90 08/27/18 08:00 Resp 18 08/27/18 08:00 BP 164/86 08/27/18 08:00 Pulse Ox 97 08/27/18 08:00 Intake & Output 08/26/18 08/27/18 08/27/18 18:59 06:59 18:59 Intake Total 2059 Balance 2059 Weight 151 kg Intake: IV 200 Intake, IV Titration 900 Amount Sodium Chloride 0.9% 1, 900 000 ml @ 75 mls/hr IV . [id number] [facility] Rx#:[id number] Oral 960 Other: Voiding Method Toilet Toilet # Voids 2 1 - Constitutional General appearance: Present: no acute distress - Respiratory Respiratory: bilateral: diminished - Cardiovascular Rhythm: irregularly irregular - Labs CBC & Chem 7: 08/26/18 11:36 08/26/18 11:36 Labs: Abnormal Lab Results - Last 24 Hours (Table) 08/26/18 08/26/18 08/26/18 Range/Units 05:31 05:31 11:36 RBC 4.12 L (4.30-5.90) m/uL MCV 105.5 H (80.0-100.0) fL MCH 35.1 H (25.0-35.0) pg Chloride (98-107) mmol/L Glucose (74-99) mg/dL TIBC 187 L (228-460) ug/dL Iron Saturation 51.87 H (15.00-50.00) Ferritin 1100.4 H (22.0-322.0) ng/mL Total Bilirubin (0.2-1.3) mg/dL AST (17-59) U/L ALT (21-72) U/L Alkaline Phosphatase (38-126) U/L Total Protein (PEP) 5.8 L (6.2-8.2) g/dL Albumin (3.5-5.0) g/dL CA 19-9 Antigen 80.7 H (0.0-34.9) U/mL 08/26/18 Range/Units 11:36 RBC (4.30-5.90) m/uL MCV (80.0-100.0) fL MCH (25.0-35.0) pg Chloride 109 H (98-107) mmol/L Glucose 129 H (74-99) mg/dL TIBC (228-460) ug/dL Iron Saturation (15.00-50.00) Ferritin (22.0-322.0) ng/mL Total Bilirubin 9.6 H (0.2-1.3) mg/dL AST 321 H (17-59) U/L ALT 141 H (21-72) U/L Alkaline Phosphatase 287 H (38-126) U/L Total Protein (PEP) (6.2-8.2) g/dL Albumin 2.9 L (3.5-5.0) g/dL CA 19-9 Antigen (0.0-34.9) U/mL Assessment and Plan Assessment: Assessment #1 atrial fibrillation with RVR. This is a new diagnosis the patient #2 abnormal liver function test and evidence with jaundice. The etiology is unknown #3 liver cirrhosis versus metastasis to the liver #4 hypertension #5 obesity Plan #1 continue the current dose of metoprolol #2 hold on any anticoagulation at this point #3 he is going for liver biopsy tomorrow. Thank you for allowing us participate in the care of the patient
--- NOTE | 2018-08-27 13:25 | P.PN ---
Subjective Progress Note Date: 08/27/18 Patient was seen and examined the bedside on 08/27/18. The patient continues to be in good spirits and denying active complaints. Denied chest pain, SOB, nausea, vomiting, abdominal pain, fever, or chills. Objective - Vital Signs Vital signs: Vital Signs Temp 98.0 F 08/27/18 08:00 Pulse 90 08/27/18 08:00 Resp 18 08/27/18 08:00 BP 164/86 08/27/18 08:00 Pulse Ox 97 08/27/18 08:00 Intake & Output 08/26/18 08/27/18 08/27/18 18:59 06:59 18:59 Intake Total 2059 Balance 2059 Weight 151 kg Intake: IV 200 Intake, IV Titration 900 Amount Sodium Chloride 0.9% 1, 900 000 ml @ 75 mls/hr IV . [id number] [facility] Rx#:[id number] Oral 960 Other: Voiding Method Toilet Toilet # Voids 2 1 - Labs CBC & Chem 7: 08/26/18 11:36 08/26/18 11:36 Assessment and Plan Plan: Jaundice, abnormal CT findings w/ liver lesions -GI recommendations appreciated -Patient underwent EGD/Colonoscopy on Tuesday which were revealed mild gastritis and small hiatal hernia along w/ a 5 mm descending colon polyp s/p polypectomy -Patient scheduled for liver biopsy tomorrow -Oncology consulted -MRI MRCP was recommended, however the patient is currently refusing due to claustrophobia. Patient may undergo procedure as outpatient -Chronic liver disease workup pending Hepatitis C serology positive -Viral titer workup pending Atrial fibrillation, RVR resolved -Cardiology recommendations appreciated -C/w Lopressor 12.5 mg bid -Holding off on Anticoagulation for now DVT prophylaxis -IPCDs Discussed with: Patient, Anticipated discharge date: 08/28/[address]: Home A total of 35 minutes was spent on the care of this complex patient more than 50% of the time was spent in counseling and care coordination.
[2018-08-27] MEDS: HYDROCHLOROTHIAZIDE 25 MG TAB PO SCH (20:45)
[2018-08-27] MEDS: SODIUM CHLORIDE 0.9% 1,000 ML IV SCH (20:49)
[2018-08-28] MEDS: SODIUM CHLORIDE 0.9% 1,000 ML IV SCH (03:33)
[2018-08-28] MEDS: METOPROLOL TARTRATE 12.5 MG TAB PO SCH (08:19)
[2018-08-28 08:26] VITALS: RESP 18
[2018-08-28 08:49] LABS: HCT 46.5 % (39.0-53.0); MCH 33.9 pg (25.0-35.0); MCHC 32.3 g/dL (31.0-37.0); MCV 104.8 fL (80.0-100.0); Macrocytosis Moderate; Mean Platelet Volume 8.1; Platelet Count 166 k/uL (150-450); RBC 4.43 m/uL (4.30-5.90); WBC 5.5 k/uL (3.8-10.6)
[2018-08-28 08:56] LABS: INR 1.2 (<1.2); Partial Thromboplastin Time 23.1 sec (22.0-30.0); Prothrombin Time 12.1 sec (9.0-12.0)
[2018-08-28 09:00] LABS: ALT 208 U/L (21-72); AST 459 U/L (17-59); Albumin 3.2 g/dL (3.5-5.0); Alkaline Phosphatase 375 U/L (38-126); Anion Gap 7 mmol/L; Blood Urea Nitrogen 14 mg/dL (9-20); Calcium 8.8 mg/dL (8.4-10.2); Carbon Dioxide 30 mmol/L (22-30); Chloride 103 mmol/L (98-107); Glucose 100 mg/dL (74-99); Potassium 3.5 mmol/L (3.5-5.1); Sodium 140 mmol/L (137-145); Total Bilirubin 10.8 mg/dL (0.2-1.3); Total Protein 7.4 g/dL (6.3-8.2)
[2018-08-28 09:59] LABS: HCV Quant Log 2.43 (<1.08); HCV Quantitative Result 268 IU/mL (<12)
[2018-08-28] MEDS: HYDROCHLOROTHIAZIDE 25 MG TAB PO SCH (11:39)
[2018-08-28 11:46] VITALS: BP 122/83; PULSE 110; TEMP 98.1
--- NOTE | 2018-08-28 12:11 | P.PN ---
Subjective Progress Note Date: 08/28/18 This is a pleasant 58-year-old gentleman with a past medical history significant for hypertension was taking medication for it in the past but he stopped taking the medication long time ago because of side effects as well as overweight was referred to the hospital by his primary care physician after he noticed change in the color of the eyes and finding consistent with jaundice. For the last several weeks, the patient has been noticing a change in the color of the eyes and being yellowish. Beside that he did not have any other symptoms like abdominal pain, nausea, vomiting, chest pain, chest discomfort, shortness of breath, or edema in the lower extremities. He did not is ago that the color of the urine has been darker. No change in the weight over the last several months. Because of that the patient was referred to the emergency room in the ER the patient was found to be in atrial fibrillation with RVR and subsequently he was started on Cardizem and drip. No history of atrial fibrillation in the past. The patient did not have any symptoms of heart racing or fluttering or dizziness or lightheadedness or syncope. The liver function test came in to be severe lead abnormal with elevated bilirubin, AST, LT, and alkaline phosphatase. Beside that he underwent an ultrasound of the abdomen which revealed abnormal finding in the liver and subsequently he underwent computed tomography scan of the abdomen and pelvis which revealed finding consistent with possible liver cirrhosis with differential diagnosis of metastasis to the liver. 08/28/2018 Patient was seen and examined this morning, continues to be in atrial fibrillation, heart rate under adequate control. Echo shows normal left ventricular systolic function. We will continue current dose of metoprolol. Patient was scheduled to undergo biopsy which has now been deferred, he will be discharged home to have an open MRI done with subsequent biopsy as an outpatient. Objective - Vital Signs Vital signs: Vital Signs Temp 98.1 F 08/28/18 11:45 Pulse 110 H 08/28/18 11:45 Resp 18 08/28/18 11:45 BP 122/83 08/28/18 11:45 Pulse Ox 98 08/28/18 11:45 Intake & Output 08/27/18 08/28/18 08/28/18 18:59 06:59 18:59 Intake Total 830 Balance 830 Weight 150.3 kg Intake: Oral 830 Other: Voiding Method Toilet Toilet Toilet # Voids 1 3 - Exam Constitutional: No acute distress, conversant, pleasant, jaundiced Eyes: mildly icteric sclerae, moist conjunctiva, no lid-lag, PERRLA ENMT: NC/AT,Oropharynx clear, no erythema, exudates Neck:Supple, FROM, no masses, or JVD, No carotid bruits; No thyromegaly Lungs: Clear to auscultation, Clear to percussion, Normal respiratory effort, no accessory muscle use Cardiovascular: irregularly irregular, No murmurs, gallops, or rubs, +1 pedal peripheral edema Abdominal: Soft Nontender, nom distended, no guarding, no rebound or rigidity, Normoactive bowel sounds No hepatomegaly, No splenomegaly, No palpable mass No abdominal wall hernia noted Skin: Normal temperature, tone, texture, turgor, No induration No subcutaneous nodules, No rash, lesions, No ulcers Extremities:No digital cyanosis No clubbing, Pedal pulses intact and symmetrical Radial pulses intact and symmetrical Normal gait and station, No calf tenderness Psychiatric: Alert and oriented to person, place and time, Appropriate affect Intact judgement Neuro: Muscles Strength 5/5 in all 4 extremities, Sensation to light touch grossly present throughout, Cranial nerves II-XII grossly intact. 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 This is a new diagnosis the patient, persistent #2 abnormal liver function test and evidence with jaundice. The etiology is unknown #3 liver cirrhosis versus metastasis to the liver #4 hypertension #5 obesity Plan Patient's echocardiogram with Doppler study revealed a normal left ventricular systolic function. Patient will require anticoagulation however at this point in time we are continuing to hold until he undergoes his biopsy. He will have a follow-up appointment to see Dr. Figueroa in the office post discharge. DNP note has been reviewed, I agree with a documented findings and plan of care. Patient was seen and examined.
--- NOTE | 2018-08-28 13:55 | P.DS ---
Providers Date of admission: 08/24/18 19:58 Expected date of discharge: 08/28/18 Attending physician: Giovany Be MD Consults: 08/24/18 19:55 Consult Physician Routine Consulting Provider: Mao Stewart Consult Reason/Comments: new Onset atrial fibrillation with RVR Do you want consulting provider notified?: Yes 08/24/18 19:56 Consult Physician Routine Consulting Provider: Sammy Rodriguez Consult Reason/Comments: Jaundice, hyperbilirubinemia Do you want consulting provider notified?: Yes 08/25/18 11:51 Consult Physician Urgent Consulting Provider: Ace Jett Consult Reason/Comments: multiple liver masses Do you want consulting provider notified?: Yes Primary care physician: Gt E [facility] Course: Patient is a 58-year-old male with no lifting past medical history, who hadn't seen a physician and many decades who presented to the ED for worsening yellowing of his skin and eyes that he noted over the prior 3 weeks. The patient had gone to a provider for the first time in years where he was noted to also be in A. fib with RVR and was subsequently referred to the ED. The patient had undergone an extensive evaluation in the ED where a right upper quadrant ultrasound revealed no gallstones or biliary ductal dilatation though did show a heterogeneous liver, suspicious for metastasis. The patient's LFTs revealed total bilirubin of 10.7, AST 348, ALT 159, alkaline phosphatase 350, and albumin of 3.6. A subsequent chest/abdomen/pelvis CT with contrast revealed hepatic morphology suggestive of cirrhosis with multiple ill-defined low-density lesions which were of indeterminate etiology and could be from cirrhosis, though could not exclude hepatic malignancy or metastatic disease. Pre-and postcontrast MRI was suggested. Furthermore, it revealed moderate splenomegaly with evidence of portal venous hypertension. The patient refused MRI due to severe claustrophobia. GI was consulted and recommended an MRI/MRCP which could not be performed. The patient underwent an EGD/colonoscopy which revealed mild gastritis and a small hiatal hernia along with a single polyp which was removed. Hepatitis C serology resulted as positive with hepatitis C RNA PCR also positive. GI subsequently recommended a liver biopsy, for which the patient was to be scheduled for 08/28/2018. The patient's case was however reviewed and it was deemed that he should undergo the MRI prior to the liver biopsy. Cardiology was also consulted for the A. fib with RVR, and the patient was initially placed on the Cardizem drip which was subsequently discontinued and he was maintained on Lopressor. The patient was recommended to hold off on anticoagulation until his outpatient follow-up with cardiology. The patient is presently ready to be discharged with an outpatient open MRI and subsequent follow-up with GI clinic for management of hepatitis C, cirrhosis, and possible liver biopsy. Physical Examination General: Non-toxic, in no acute distress, jaundiced, appears stated age, normal weight HEENT: NC/AT, scleral icterus, moist conjunctiva, no lid-lag, PERRLA Cardiovascular: S1/S2 wnl, no murmurs, rubs, or gallops Lungs: Clear to auscultation, normal respiratory effort, no accessory muscle use Abdominal: Soft, non-tender, non-distended, no guarding, rebound, or rigidity Skin: Warm, dry Extremities: No edema or contractures Psychiatric: Alert and oriented to person, place and time, appropriate affect Neuro: CN II-XII grossly intact, Strength 5/5 in all 4 extremities, Speech intact, Sensation to light touch grossly intact throughout Discharge diagnosis: Jaundice, suspected cirrhosis; chronic hepatitis C; atrial fibrillation; hypertension A total of 40 minutes of time were spent preparing this complex discharge summary. Patient Condition at Discharge: Stable Plan - Discharge Summary New Discharge Prescriptions: New Hydrochlorothiazide [Hydrodiuril] 50 mg PO DAILY #14 tab Metoprolol Tartrate [Lopressor] 12.5 mg PO BID #14 tab Continue Xanax(Unknown Dose) 1 tab PO DAILY Discharge Medication List Xanax(Unknown Dose) 1 tab PO DAILY 08/24/18 [History] Hydrochlorothiazide [Hydrodiuril] 50 mg PO DAILY #14 tab 08/28/18 [Rx] Metoprolol Tartrate [Lopressor] 12.5 mg PO BID #14 tab 08/28/18 [Rx] Follow up Appointment(s)/Referral(s): Mao Stewart MD [STAFF PHYSICIAN] - 09/12/18 3:45 pm Gt Lopez MD [Primary Care Provider] - 1-2 days Celeste Colby MD [STAFF PHYSICIAN] - 1 Week Patient Instructions/Handouts: A-fib (Atrial Fibrillation) (DC), Cirrhosis (DC) Discharge Disposition: HOME SELF-CARE
[2018-08-28 14:48] LABS: Liver/Kidney Microsome Antibod 1.3 UNITS (<=20)
[2018-08-28 15:16] LABS: Albumin 2.53 g/dL (3.80-4.90); Gamma Globulin 1.68 g/dL (0.70-1.50)
--- NOTE | 2018-08-28 17:18 | P.CONS ---
History of Present Illness - Reason for Consult Consult date: 08/28/18 Liver Masses Requesting physician: Genie Montano - Chief Complaint Painless Jaundice - History of Present Illness Mr. Butler is a 58-year-old male admitted with new onset of painless jaundice x 2 weeks darker colored urine and heart palpitations found to be in A. fib with RVR. On Admission abnormal Liver function was identified - Total Bilirubin 10.7. Conjugated 3.2. Unconjugated 2.6. AST 340. ALT 159. AP 350. Albumin 3.6. and GI was consulted. Patient denied history of alcohol use, liver disease, or hepatits. Ultrasound no gallstones or dilated ducts. Heterogeneous liver suspicious for multiple masses and presence of metastatic disease. CT chest abdomen and pelvis findings suggesting portal venous hypertension dilated portal and splenic veins varices and venous collaterals. Findings suggested of splenorenal shunt. Hepatic morphology suggestive of cirrhosis multiple ill-defined hepatic low-density lesions throughout the liver which are indeterminate could related cirrhosis and hepatocellular disease but Malignancy could not be excluded. Therefore Medical Obcology was consulted. Moderate-sized organomegaly with evidence of portal venous hypertension. Generalized anasarca no ascites. Cholelithiasis small calcified gallstones no evidence of biliary dilatation. Review of Systems A 14 point review of systems assessed and completed and all negative except HPI Past Medical History Past Medical History: No Reported History Additional Past Medical History / Comment(s): states 15 years ago had HTN, quit taking medications. hasnt seen doctor in 20 yrs. History of Any Multi-Drug Resistant Organisms: None Reported Past Surgical History: No Surgical Hx Reported Past Psychological History: Anxiety Smoking Status: Never smoker Past Alcohol Use History: None Reported Past Drug Use History: Marijuana Medications and Allergies Home Medications Medication Instructions Recorded Confirmed Type Xanax(Unknown Dose) 1 tab PO DAILY 08/24/18 08/24/18 History Hydrochlorothiazide [Hydrodiuril] 50 mg PO DAILY #14 tab 08/28/18 Rx Metoprolol Tartrate [Lopressor] 12.5 mg PO BID #14 tab 08/28/18 Rx Allergies Allergy/AdvReac Type Severity Reaction Status Date / Time No Known Allergies Allergy Verified 08/24/18 18:51 Physical Exam Vitals: Vital Signs Temp Pulse Resp BP Pulse Ox 08/28/18 11:45 98.1 F 110 H 18 122/83 98 08/28/18 11:07 100 18 08/28/18 08:00 97.8 F 100 18 162/78 100 08/28/18 03:27 89 17 08/28/18 03:26 99 F 89 17 157/93 95 08/27/18 23:14 92 17 08/27/18 23:11 98.9 F 92 17 143/87 94 L 08/27/18 20:00 99.1 F 105 H 17 144/85 94 L Intake and Output 08/28/18 08/28/18 08/28/18 06:59 14:59 22:59 Intake Total 600 Output Total 500 Balance 600 -500 Intake: Oral 600 Output: Urine 500 Other: Voiding Method Toilet Toilet # Voids 3 Weight 150.3 kg Jaundice - Constitutional General appearance: average body habitus, cooperative, no acute distress - EENT Eyes: scleral icterus ENT: NA/AT - Neck Supple, No lymphadenopathy Neck: normal ROM - Respiratory Respiratory: bilateral: CTA - Cardiovascular Rhythm: irregularly irregular - Gastrointestinal General gastrointestinal: hepatomegaly, soft, tenderness - Integumentary Integumentary: jaundiced, pale - Neurologic No sensory or motor deficits Results CBC & Chem 7: 08/28/18 08:07 08/28/18 08:07 Labs: Abnormal Lab Results - Last 24 Hours (Table) 08/25/18 08/25/18 08/26/18 Range/Units 11:57 11:57 05:31 MCV (80.0-100.0) fL PT (9.0-12.0) sec INR (<1.2) Glucose (74-99) mg/dL Total Bilirubin (0.2-1.3) mg/dL AST (17-59) U/L ALT (21-72) U/L Alkaline Phosphatase (38-126) U/L Albumin (3.5-5.0) g/dL Albumin (PEP) 2.53 L (3.80-4.90) g/dL Gamma Globulins 1.68 H (0.70-1.50) g/dL Anti-Smooth Muscle Ab 34 H (<20) UNITS HCV RNA Qual (PCR) DETECTED H (Not detected) Hepatitis C RNA Quant 268 H (<12) IU/mL HCV RNA PCR log telescope maintenance/ml 2.43 H (<1.08) 08/28/18 08/28/18 08/28/18 Range/Units 08:07 08:07 08:07 MCV 104.8 H (80.0-100.0) fL PT 12.1 H (9.0-12.0) sec INR 1.2 H (<1.2) Glucose 100 H (74-99) mg/dL Total Bilirubin 10.8 H (0.2-1.3) mg/dL AST 459 H (17-59) U/L ALT 208 H (21-72) U/L Alkaline Phosphatase 375 H (38-126) U/L Albumin 3.2 L (3.5-5.0) g/dL Albumin (PEP) (3.80-4.90) g/dL Gamma Globulins (0.70-1.50) g/dL Anti-Smooth Muscle Ab (<20) UNITS HCV RNA Qual (PCR) (Not detected) Hepatitis C RNA Quant (<12) IU/mL HCV RNA PCR log telescope maintenance/ml (<1.08) Assessment and Plan (1) Hepatitis C antibody positive in blood Status: Acute Code(s): R76.8 - OTHER SPECIFIED ABNORMAL IMMUNOLOGICAL FINDINGS IN SERUM SNOMED Code(s): 662900194 (2) Hyperbilirubinemia Status: Acute Code(s): E80.6 - OTHER DISORDERS OF BILIRUBIN METABOLISM SNO MED Code(s): 13259339 Plan: Assessment and Recommendations: Concern for new liver lesions: - Biopsy of Liver is scheduled Today - Agree with MRCP although patient refused due to claustrophobia - Will await results of diagnostic biopsy - Status Post EGD and Colonoscopy New Onset Jaundice: Elevated Liver Function Tests Jaundice, abnormal CT findings w/ liver lesions Plan: - Biopsy of Liver Lesions - Await results and if malignancy concern may follow-up in office with Dr. Jett Physician Attest: I have completed the full history and physical of this patient and devloped the complete impression and plan, agree with above dictation, dictated as ascribe.
== END 2018-08-28 15:10 | disposition home or self-care (01) | DRG 433 ==
LOC: EC 18:08 → 3SCARD 19:58
PROVIDERS: ADMIT Family Medicine; ATTEND Family Medicine
PROC: 0DJ08ZZ Inspection of Upper Intestinal Tract, Via Natural or Artificial Opening Endoscopic (ICD-10-PCS; principal; 2018-08-26 08:30)
PROC: 0DBM8ZX Excision of Descending Colon, Via Natural or Artificial Opening Endoscopic, Diagnostic (ICD-10-PCS; 2018-08-26 08:30)
DX: K74.60 Unspecified cirrhosis of liver (principal); Z68.42 Body mass index [BMI] 45.0-49.9, adult; K76.6 Portal hypertension; K80.21 Calculus of gallbladder without cholecystitis with obstruction; I48.1 Persistent atrial fibrillation; I48.0 Paroxysmal atrial fibrillation; E66.01 Morbid (severe) obesity due to excess calories; R16.1 Splenomegaly, not elsewhere classified; F40.240 Claustrophobia; K29.70 Gastritis, unspecified, without bleeding; K44.9 Diaphragmatic hernia without obstruction or gangrene; K63.5 Polyp of colon; B18.2 Chronic viral hepatitis C; I10 Essential (primary) hypertension; K64.8 Other hemorrhoids; Z53.20 Procedure and treatment not carried out because of patient's decision for unspecified reasons; Z79.899 Other long term (current) drug therapy
CPT/HCPCS: 36415; 43235; 45385; 71046; 71270; 74178; 76705; 80053; 80074; 82103; 82105; 82248; 82378; 82390; 82728; 83516; 83540; 83550; 83735; 84165; 84443; 84484; 85025; 85027; 85610; 85730; 86038; 86301; 86376; 87522; 88305; 93005; 93306; 94760; 96365; 96366; 96376; 99291